=== PATIENT | male | born 1945 | race Caucasian/White ===

== ENCOUNTER 2019-11-15 10:38 | Outpatient (CLI) | payer MEDICARE, SELFPAY ==
--- NOTE | 2019-11-15 11:00 | ECG_ITS ---
Measurements Intervals [place] Rate: 69 P: [place]: 0 QRS: 7 QRSD: 101 T: 40 QT: 434 QTc: 468 Interpretive Statements SINUS RHYTHM CHANGES WITH INTERMITTENT ECTOPIC ATRIAL RHYTHM BASELINE ARTIFACT- I, III, AVR, AVL, AVF ABNORMAL ECG Electronically Signed On 11-15-2019 11:33:06 CDT by Mina Voss D.O.
== END 2019-11-15 10:39 | disposition home or self-care (01) ==
LOC: ANHCARD 10:50
PROVIDERS: PCP Internal Medicine
DX: I48.0 Paroxysmal atrial fibrillation (principal); Z51.81 Encounter for therapeutic drug level monitoring; Z79.899 Other long term (current) drug therapy; R94.31 Abnormal electrocardiogram [ECG] [EKG]
CPT/HCPCS: 93005

== ENCOUNTER 2021-11-15 10:21 | Outpatient (CLI) | payer MEDICARE, SELFPAY ==
--- NOTE | 2021-11-15 | ECG_ITS ---
Measurements Intervals [place] Rate: 65 P: 58 [place]: 160 QRS: 26 QRSD: 97 T: 59 QT: 426 QTc: 446 Interpretive Statements SINUS RHYTHM BASELINE ARTIFACT- I, II, III, AVR, AVL, AVF NORMAL ECG COMPARED TO ECG 11/15/2019 11:07:28 NO SIGNIFICANT CHANGES Electronically Signed On 11-15-2021 11:10:18 CDT by Mina Voss D.O.
[2021-11-15 11:22] LABS: Anion Gap 9 mmol/L (8-16); Blood Urea Nitrogen 18 mg/dL (9-20); Calcium 9.3 mg/dL (8.4-10.2); Carbon Dioxide 28 mmol/L (22-30); Chloride 105 mmol/L (98-107); Estimated Glomerular Filt Rate > 60; Glucose 87 mg/dL (65-110); Potassium 5.1 mmol/L (3.4-5.0); Sodium 142 mmol/L (137-145)
== END 2021-11-15 10:22 | disposition home or self-care (01) ==
LOC: ANHLAB 10:28
DX: I48.0 Paroxysmal atrial fibrillation (principal); Z79.899 Other long term (current) drug therapy
CPT/HCPCS: 36415; 80048; 93005

== ENCOUNTER 2022-09-13 00:30 | Emergency (ER) | payer MEDICARE, SELFPAY ==
[2022-09-13] VITALS (16 sets, daily range): BP systolic 133–159; BP diastolic 76–96; PULSE 62–144; RESP 11–24; TEMP 36.6; O2SAT 98–100
--- NOTE | ~2022-09-13 | XR_ITS ---
Portable chest x-ray Comparison: None Clinical History: Palpitations Findings: Lungs are clear, without focal consolidation or pleural effusion. Cardiomediastinal silho uette is unremarkable. Bones and soft tissues are unremarkable. Impression: Clear lungs. Reviewed, dictated and finalized at location M. Impression: Clear lungs.
--- NOTE | 2022-09-13 00:31 | ECG_ITS ---
Measurements Intervals [place] Rate: 149 P: [place]: 0 QRS: 39 QRSD: 92 T: -19 QT: 306 QTc: 482 Interpretive Statements ATRIAL FIBRILLATION WITH RAPID VENTRICULAR RESPONSE ST-T WAVE ABNORMALITY IN LATERAL LEADS- CONSIDER ISCHEMIA BASELINE ARTIFACT- I, II, III ABNORMAL ECG COMPARED TO ECG 11/15/2021 10:59:59 A[address] FIBRILLATION NOW PRESENT ST-T WAVE ABNORMALITY NOW PRESENT Electronically Signed On 09-13-2022 6:34:08 CDT by Mina Voss D.O.
--- NOTE | 2022-09-13 00:44 | ED.GENADULT ---
HPI - General Adult General Chief complaint: Arrhythmia/Palpitations Stated complaint: palpitations Time Seen by Provider: 09/13/22 00:31 History of Present Illness HPI narrative: Patient 80-year-old gentleman who presents the emergency department with chief complaint of atrial fibrillation. Patient reports he has prior history of A-fib and takes dofetilide for control of his A-fib. 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 The patient reports he used the inhaler once yesterday and then once this evening the patient reports he is on day 2 of his Medrol Dosepak and reports that this evening he felt as though his heart started getting irregular and tachycardic. Patient does report that he is mostly in sinus rhythm at baseline. He does take. A DOAC. Related Data Allergies Allergy/AdvReac Type Severity Reaction Status Date / Time No Known Allergies Allergy Verified 09/13/22 00:34 Review of Systems Review of Systems: A 10 system review of systems was completed on the patient and is negative except for what is stated in the HPI. Nursing and ancillary documentation was reviewed. Exam Narrative: GENERAL: Well-appearing, well-nourished, and in no acute distress. HEAD: Normocephalic, atraumatic. EYES: PERRLA and EOMI. ENT: Nares clear, no rhinorrhea or epistaxis. Mucous membranes moist. NECK: Supple. CHEST: Clear to auscultation. No respiratory distress. HEART: Tachycardic irregular rate and rhythm. No murmur heard. Normal peripheral pulses. ABDOMEN: Soft, nontender, nondistended, normal active bowel sounds. EXTREMITIES: Normal range of motion. No edema. SKIN: Warm, dry, no rash. NEURO: No focal deficits. Alert and oriented x3. PSYCH: Normal mood and affect. Course Vital Signs Vital signs: Vital Signs Temperature 36.6 C 09/13/22 00:32 Pulse Rate 138 H 09/13/22 00:32 Respiratory Rate 15 09/13/22 00:32 Blood Pressure 142/96 H 09/13/22 00:32 Pulse Oximetry 100 09/13/22 00:32 Oxygen Delivery Room Air 09/13/22 00:32 Temperature 36.6 C 09/13/22 00:32 Pulse Rate 138 H 09/13/22 00:32 Respiratory Rate 15 09/13/22 00:32 Blood Pressure 142/96 H 09/13/22 00:32 Pulse Oximetry 100 09/13/22 00:32 Oxygen Delivery Room Air 09/13/22 00:32 Medical Decision Making MDM Narrative Medical decision making narrative: Differential diagnosis with A-fib with RVR, dysrhythmia, electrolyte abnormality, ACS EKG shows atrial fibrillation with a rate of 149 Patient was given 20 mg of Cardizem IV and started on Cardizem drip. 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 Vital Signs Vital Signs: Vital Signs Temperature 36.6 C 09/13/22 00:32 Pulse Rate 138 H 09/13/22 00:32 Respiratory Rate 15 09/13/22 00:32 Blood Pressure 142/96 H 09/13/22 00:32 Pulse Oximetry 100 09/13/22 00:32 Oxygen Delivery Room Air 09/13/22 00:32 Temperature 36.6 C 09/13/22 00:32 Pulse Rate 138 H 09/13/22 00:32 Respiratory Rate 15 09/13/22 00:32 Blood Pressure 142/96 H 09/13/22 00:32 Pulse Oximetry 100 09/13/22 00:32 Oxygen Delivery Room Air 09/13/22 00:32 Critical Care Time Critical Care Time Critical Care Time: Yes Total Critical Care Time: 30 Discharge Plan Discharge Clinical Impression: Atrial fibrillation with rapid ventricular response Patient Disposition: Home, Self-Care Condition: Stable Instructions: Antibiotic Form Follow-up/Referrals: Zita,Javid Griggs MD [Primary Care Provider] -
[2022-09-13] MEDS: dilTIAZem HCl INJ 25 MG/5 ML VIAL 20 MG IV PUSH (00:45)
[2022-09-13] MEDS: dilTIAZem 100 MG/100 ML 100 MG/100 ML BAG IV CONT (00:51)
--- NOTE | 2022-09-13 02:15 | ECG_ITS ---
Measurements Intervals [place] Rate: 76 P: 65 [place]: 164 QRS: 16 QRSD: 96 T: 41 QT: 374 QTc: 422 Interpretive Statements SINUS RHYTHM NORMAL ECG COMPARED TO ECG 09/13/2022 00:37:59 SINUS RHYTHM NOW PRESENT Electronically Signed On 09-18-2022 11:47:51 CDT by Mina Voss D.O.
--- NOTE | 2022-09-13 06:59 | PC.NURSE ---
diltizem stopped infusion at 0230 09/13/2022 due to patient converting to normal sinus rhythm.
[2022-09-13 07:26] LABS: Alanine Aminotransferase 29 U/L (6-50); Albumin Level 4.5 g/dL (3.5-5.1); Alkaline Phosphatase 76 U/L (38-126); Anion Gap 11 mmol/L (8-16); Aspartate Amino Transferase 30 U/L (17-59); Bilirubin,Total 0.3 mg/dL (0.2-1.3); Blood Urea Nitrogen 20 mg/dL (9-20); Calcium 9.3 mg/dL (8.4-10.2); Carbon Dioxide 25 mmol/L (22-30); Chloride 106 mmol/L (98-107); Estimated CRCL calculation 76 ml/min; Estimated Glomerular Filt Rate > 60; Glucose 128 mg/dL (65-110); Lipase 26 U/L (23-300); Magnesium 2.2 mg/dL (1.6-2.3); NT Pro B Type Natriuretic Pept 220 pg/mL (19.9-100); Potassium 3.6 mmol/L (3.4-5.0); Sodium 142 mmol/L (137-145); Troponin I < 0.012 ng/mL (0.000-0.034)
[2022-09-13 08:40] LABS: Basophils Percent Auto 0.2 % (0.2-1.2); Eosinophils Percent Auto 0.1 % (0-4.4); Hematocrit 43.8 % (42.0-52.0); Hemoglobin 14.7 g/dL (14.0-18.0); Immature Granulocyte Absolute 0.05 K/mm3 (0.00-0.031); Immature Granulocyte Percent A 0.5 % (0-0.5); Lymphocytes Absolute Auto 2.08 K/mm3 (0.9-3.2); Mean Corpuscular HGB Conc 33.6 g/dl (32-36); Mean Corpuscular Hemoglobin 30.8 pg (26-34); Mean Corpuscular Volume 91.8 fl (80-100); Mean Platelet Volume 8.6 fl (7.4-10.4); Monocytes Absolute Auto 1.2 K/mm3 (0.1-0.6); Neutrophils Absolute Auto 7.6 K/mm3 (1.3-6.7); Neutrophils Percent Auto 69.2 % (45.5-73.1); Platelet Count Result 337 k/mm3 (150-375); Red Blood Count 4.77 M/mm3 (4.6-6.20); Red Cell Distribution Width 13.8 % (11.5-14.5)
[2022-09-13 08:55] LABS: INR 1.1; Partial Thromboplastin Time 26.5 SECONDS (22.3-36.8); Prothrombin Time 14.4 Seconds (11.1-14.7)
== END 2022-09-13 07:04 | disposition home or self-care (01) ==
PROVIDERS: Emergency Provider Emergency Medicine; PCP Internal Medicine
DX: I48.91 Unspecified atrial fibrillation (principal); Z79.01 Long term (current) use of anticoagulants; R94.31 Abnormal electrocardiogram [ECG] [EKG]
CPT/HCPCS: 36415; 71045; 80053; 83690; 83735; 83880; 84484; 85025; 85610; 85730; 93005; 96365; 99284